=== PATIENT | male | born 1995 | race Caucasian/White ===

== ENCOUNTER 2018-10-03 13:44 | Emergency (ER) | payer OTHER ==
[~2018-10-03] VITALS: Ht 172.7 cm; Wt 60.0 kg
[2018-10-03 13:46] VITALS: BP 139/73
[2018-10-03] MEDS ORDERED: IBUP-1022 PO (14:35)
[2018-10-03] MEDS ORDERED: FLON1SPR NARES (14:35)
[2018-10-03] MEDS ORDERED: MUCI600T37 PO (14:35)
[2018-10-03] MEDS ORDERED: ZYRTTAB8 PO (14:35)
== END 2018-10-03 14:39 | disposition home or self-care (01) ==
LOC: M ED 13:44
DX: J30.89 Other allergic rhinitis (principal); Z79.899 Other long term (current) drug therapy; Z79.51 Long term (current) use of inhaled steroids